=== PATIENT | male | born 1950 | race Two or more races ===

== ENCOUNTER 2017-10-19 19:11 | Inpatient (IN) | payer MEDICARE, MEDICAID ==
[~2017-10-19] VITALS: Ht 188 cm; Wt 91.7 kg
[2017-10-19] VITALS (11 sets, daily range): BP systolic 122–181; BP diastolic 69–106
[2017-10-19] MEDS ORDERED: Azithromycin 500 MG in D5W 275 ML IVPB ONE (19:15)
[2017-10-19] MEDS ORDERED: Solu-MEDROL 125mg Inj IVP ONE (19:15)
--- NOTE | 2017-10-19 19:26 | Emergency Room Report ---
History of Present Illness General Chief Complaint: Dyspnea/Respdistress Source: Patient, EMS Present Illness HPI 67-year-old male with history of COPD, former smoker, hypertension p/w SOB for 3 days. SOB occurs both at rest and on exertion. + productive cough with sputum, denies change in sputum production. Denies chest pain. Patient has been using albuterol nebulizer about 3 times a day No recent steroid use. Pt states that this episode is similar to other episodes of COPD exacerbation. Denies fever, chills. Denies sick contacts or recent travel. Patient denies history of ICU admissions, intubations, or usage of BIPAP for COPD. Allergies: Coded Allergies: PENICILLINS (Verified Allergy, Unknown, 10/19/17) Patient History Past Medical History: see triage record Past Surgical History: none Pertinent Family History: none Reviewed Nursing Documentation: PMH: Agreed, PSxH: Agreed Nursing Documentation-PMH Hx Hypertension: Yes Hx Asthma: Yes Hx Cerebrovascular Accident: Yes Review of Systems All Other Systems: negative except mentioned in HPI Physical Exam Vital Signs Date Time Temp Pulse Resp B/P (MAP) Pulse Ox O2 Delivery O2 Flow Rate FiO2 10/19/17 19:14 98.8 121 27 146/78 100 Bi-pap 15.0 Sp02 EP Interpretation: reviewed, normal General Appearance: alert, GCS 15, moderate distress, other - Appear short of breath, speaking in 2-3 word sentences Head: normocephalic, atraumatic Eyes: bilateral eye normal inspection, bilateral eye PERRL, bilateral eye EOMI ENT: normal ENT inspection, normal pharynx, moist mucus membranes Neck: normal inspection, full range of motion, supple Respiratory: other - Bilateral expiratory wheezing, tachypnea, retracting Cardiovascular #1: normal inspection, regular rate, rhythm, normal capillary refill Cardiovascular #2: 2+ radial (R), 2+ radial (L) Gastrointestinal: normal inspection, non tender, soft, non-distended, no guarding Musculoskeletal: normal inspection, back normal, normal range of motion, non- tender Neurologic: normal inspection, alert, oriented x3, responsive, motor strength/ tone normal, sensory intact, normal gait, speech normal Psychiatric: normal inspection, judgement/insight normal, memory normal Skin: normal inspection, normal color, no rash, warm/dry, well hydrated, normal turgor Procedures Critical Care Time Critical Care Time 40 minutes of CC time 57-year-old male, COPD, shortness of breath VS: tachycardiac, tachypneic PLAN: IV access, labs, BiPAP, nebs, steroids, antibiotics Anticipate admission to Tele vs. R[facility] CC time also includes review of labs, review of EMR, discussion with family and paperwork from SNF, d/w hospitalist CC could include dosing of pressors, additional Abx CC time does not include procedures Intubation Intubation : Consent: Verbal Intubation Method: orotracheal Tube Size (cm): 7.5 Medications: Ketamine, Rocuronium Breath Sounds after Intubation: equal Intubation Complications: no complications Post Intubation Xray: Yes Attempts: One Patient Tolerated: Well Complications: None Medical Decision Making Diagnostic Impression: Primary Impression: COPD exacerbation Additional Impression: Respiratory failure with hypercapnia ER Course 67-year-old male with pmhx of COPD p/w SOB for 3 days. DDX: COPD exacerbation, ACS, pneumonia Plan: IV access, cardiac care unit nurse, O2 nasal cannula, EKG, CXR obtain basic labs including blood gas, troponin, Duonebs, steroids, consider mag Will consider BIPAP for persistent or worsening respiratory status ER Course: Patient immediately placed on BiPAP upon arrival Patient has been treated with combivent x 3, steroids, antibiotics. + IV mag sulfate CXR reveals no acute infiltrate pt very anxious, continues to be wheezing, wanting to take off bipap despite being in severe resp distress ketamine 25mg IV given via slow push for anxiolysis and bronchodilation, not procedural sedation patient continues to be awake and alert, still in resp distress however is tolerating bipap well pCO2 noted to inc to 71 worsening resp status, not able to tolerate bipap intuabted him at 10:10pm, notified Dr Collins. Disposition: Patient will be admitted to ICU Patient remains critical with vital signs revealing tachypnea and hypoxia. Patient requires close monitoring of respiratory status, continuation of BIPAP, and nebulizer treatment. D/W hospitalist Dr Collins who has accepted patient for admission Please note that this Emergency Department Report was dictated using [employer] patrolman technology software, occasionally this can lead to erroneous entry secondary to interpretation by the dictation equipment. EKG Diagnostic Results EP Interpretation: Yes Rate: Tachycardic Rhythm: NSR ST Segments: No acute changes ASA given to patient: no Rhythm Strip EP Interpretation: Yes Rate: 100 Rhythm: NSR, no PVCs, no ectopy Chest X-ray CXR: Ordered: Yes 1 view Indication: SOB EP interpretation: Yes Interpretation: hyperinflated lungs Impression: copd Electronically signed by Kristopher Hope MD Chest X-ray CXR: Ordered: Yes 1 view Indication: ETT placement EP interpretation: Yes Interpretation: ETT in appropriate position Impression: ETT in appropriate position Electronically signed by Kristopher Hope MD Laboratory Tests Test 10/19/17 19:14 10/19/17 19:28 10/19/17 21:13 10/19/17 21:14 Arterial Blood pH 7.242 (7.350-7.450) 7.187 (7.350-7.450) Arterial Blood Partial Pressure CO2 69.3 mmHg (35.0-45.0) *H 72.0 mmHg (35.0-45.0) *H Arterial Blood Partial Pressure O2 319.2 mmHg (75.0-100.0) H 209.5 mmHg (75.0-100.0) H Arterial Blood HCO3 29.2 mmol/L (22.0-26.0) H 26.7 mmol/L (22.0-26.0) H Arterial Blood Oxygen Saturation 98.9 % (92.0-98.0) H 98.8 % (92.0-98.0) H Arterial Blood Base Excess 0 -3.3 Wang Test Positive Positive White Blood Count 7.6 K/UL (4.8-10.8) Red Blood Count 4.90 M/UL (4.70-6.10) Hemoglobin 15.2 G/DL (14.2-18.0) Hematocrit 45.5 % (42.0-52.0) Mean Corpuscular Volume 93 FL (80-99) Mean Corpuscular Hemoglobin 31.1 PG (27.0-31.0) H Mean Corpuscular Hemoglobin Concent 33.5 G/DL (32.0-36.0) Red Cell Distribution Width 11.2 % (11.6-14.8) L Platelet Count 202 K/UL (150-450) Mean Platelet Volume 7.0 FL (6.5-10.1) Neutrophils (%) (Auto) 86.7 % (45.0-75.0) H Lymphocytes (%) (Auto) 6.2 % (20.0-45.0) L Monocytes (%) (Auto) 6.2 % (1.0-10.0) Eosinophils (%) (Auto) 0.0 % (0.0-3.0) Basophils (%) (Auto) 0.9 % (0.0-2.0) Prothrombin Time 10.5 SEC (9.30-11.50) Prothrombin Time INR 1.0 (0.9-1.1) PTT 37 SEC (23-33) H Sodium Level 133 MMOL/L (136-145) L Potassium Level 3.8 MMOL/L (3.5-5.1) Chloride Level 96 MMOL/L (98-107) L Carbon Dioxide Level 29 MMOL/L (21-32) Anion Gap 8 mmol/L (5-15) Blood Urea Nitrogen 13 mg/dL (7-18) Creatinine 1.1 MG/DL (0.55-1.30) Estimate Glomerular Filtration Rate > 60 mL/min (>60) Glucose Level 286 MG/DL (74-106) H Calcium Level 8.9 MG/DL (8.5-10.1) Total Bilirubin 0.6 MG/DL (0.2-1.0) Aspartate Amino Transferase (AST) 23 U/L (15-37) Alanine Aminotransferase (ALT) 28 U/L (12-78) Alkaline Phosphatase 112 U/L (46-116) Troponin I 0.000 ng/mL (0.000-0.056) Pro-B-Type Natriuretic Peptide 208 pg/mL (0-125) H Total Protein 8.1 G/DL (6.4-8.2) Albumin 3.9 G/DL (3.4-5.0) Globulin 4.2 g/dL Albumin/Globulin Ratio 0.9 (1.0-2.7) L Urine Color Yellow Urine Appearance Clear Urine pH 5 (4.5-8.0) Urine Specific [place] 1.025 (1.005-1.035) Urine Protein 3+ (NEGATIVE) H Urine Glucose (UA) 4+ (NEGATIVE) H Urine Ketones 1+ (NEGATIVE) H Urine Occult Blood 3+ (NEGATIVE) H Urine Nitrite Negative (NEGATIVE) Urine Bilirubin Negative (NEGATIVE) Urine Urobilinogen Normal MG/DL (0.0-1.0) Urine Leukocyte Esterase Negative (NEGATIVE) Urine RBC 0-2 /HPF (0 - 0) H Urine WBC 2-4 /HPF (0 - 0) Urine Squamous Epithelial Cells Occasional /LPF Urine Bacteria Occasional /HPF (NONE) Last Vital Signs Date Time Temp Pulse Resp B/P (MAP) Pulse Ox O2 Delivery O2 Flow Rate FiO2 10/19/17 19:14 98.8 121 27 146/78 100 Bi-pap 15.0 Disposition: ADMITTED INPATIENT Condition: Critical Kristopher Hope M.D. Oct 19, 2017 19:26
[2017-10-19] MEDS: Albuterol ud Inhalation HHN SCH ×6 (19:36→21:16)
[2017-10-19] MEDS: Ipratropium 0.02% Inh Soln 2.5ml UD HHN SCH ×6 (19:36→21:16)
[2017-10-19] MEDS ORDERED: Azithromycin 500mg Inj IV ONE (19:47)
[2017-10-19 19:50] LABS: MEAN CORPUSCULAR HEMOGLOBIN 31.1 PG (27.0-31.0); MEAN CORPUSCULAR HGB CONC 33.5 G/DL (32.0-36.0); MEAN CORPUSCULAR VOLUME 93 FL (80-99); PLATELET COUNT 202 K/UL (150-450); RED CELL DISTRIBUTION WIDTH 11.2 % (11.6-14.8); WHITE BLOOD COUNT 7.6 K/UL (4.8-10.8)
[2017-10-19 19:56] LABS: BASOPHILS % (AUTO) 0.9 % (0.0-2.0); LYMPHOCYTES % (AUTO) 6.2 % (20.0-45.0); MONOCYTES % (AUTO) 6.2 % (1.0-10.0); NEUTROPHILS % (AUTO) 86.7 % (45.0-75.0)
[2017-10-19 20:05] LABS: PROTHROMBIN TIME 10.5 SEC (9.30-11.50)
[2017-10-19 20:09] LABS: ANION GAP 8 mmol/L (5-15); CALCIUM 8.9 MG/DL (8.5-10.1); CARBON DIOXIDE 29 MMOL/L (21-32); CHLORIDE 96 MMOL/L (98-107); CREATININE 1.1 MG/DL (0.55-1.30); GLOMERULAR FILTRATION RATE > 60 mL/min (>60); POTASSIUM 3.8 MMOL/L (3.5-5.1); SODIUM 133 MMOL/L (136-145)
[2017-10-19 20:10] LABS: ABG BASE EXCESS 0; ABG PCO2 69.3 mmHg (35.0-45.0)
[2017-10-19 20:11] LABS: ABG ALLEN TEST POSITIVE
[2017-10-19] MEDS ORDERED: Ketamine HCl 100mg syr IV ONE ×3 (20:15→22:15)
[2017-10-19 20:20] LABS: ALANINE AMINOTRANSFERASE 28 U/L (12-78); ALBUMIN/GLOBULIN RATIO 0.9 (1.0-2.7); ASPARTATE AMINO TRANSFERASE 23 U/L (15-37); TOTAL PROTEIN 8.1 G/DL (6.4-8.2)
[2017-10-19 21:32] LABS: APPEARANCE,URINE CLEAR; KETONES,URINE 1+ (NEGATIVE); LEUKOCYTE ESTERASE ,URINE NEGATIVE (NEGATIVE); NITRITE,URINE NEGATIVE (NEGATIVE); PH,URINE 5 (4.5-8.0); PROTEIN,URINE 3+ (NEGATIVE); UROBILINOGEN,URINE NORMAL MG/DL (0.0-1.0)
[2017-10-19 21:39] LABS: BACTERIA,URINE OCCASIONAL /HPF; RBC,URINE 0-2 /HPF (0 - 0); SQUAMOUS EPITHELIAL CELL,UR OCCASIONAL /LPF (NONE/OCC)
[2017-10-19 21:42] LABS: ABG ALLEN TEST POSITIVE; ABG BASE EXCESS -3.3
[2017-10-19] MEDS ORDERED: Zemuron 50mg/5ml Inj IV ONE (22:15)
[2017-10-19] MEDS ORDERED: UNOBMED (22:47)
[2017-10-19] MEDS ORDERED: Hydromorphone 0.5mg/0.5ml inj IVP PRN (23:00)
[2017-10-19] MEDS ORDERED: LORazepam Inj 2mg/ml 1ml IV PRN (23:00)
[2017-10-20] VITALS (37 sets, daily range): BP systolic 109–186; BP diastolic 65–97
[2017-10-20] MEDS: D5 1/2NS 1,000 ML IV SCH ×2 (00:59→19:20)
[2017-10-20] MEDS ORDERED: Albuterol ud Inhalation ONE (01:05)
[2017-10-20] MEDS ORDERED: Albuterol/Ipratropium 3ml neb ONE ×2 (01:07→03:29)
[2017-10-20] MEDS: Albuterol/Ipratropium 3ml neb HHN SCH ×7 (01:08→23:16)
[2017-10-20 05:03] LABS: ABG BASE EXCESS 0.8; ABG PCO2 69.1 mmHg (35.0-45.0)
[2017-10-20 05:04] LABS: ABG ALLEN TEST POSITIVE
[2017-10-20 05:16] LABS: MEAN CORPUSCULAR HEMOGLOBIN 32.2 PG (27.0-31.0); MEAN CORPUSCULAR HGB CONC 34.3 G/DL (32.0-36.0); MEAN CORPUSCULAR VOLUME 94 FL (80-99); PLATELET COUNT 199 K/UL (150-450); RED BLOOD COUNT 4.19 M/UL (4.70-6.10); RED CELL DISTRIBUTION WIDTH 11.5 % (11.6-14.8)
[2017-10-20 05:37] LABS: ANION GAP 7 mmol/L (5-15); CALCIUM 8.8 MG/DL (8.5-10.1); CARBON DIOXIDE 31 MMOL/L (21-32); CHLORIDE 95 MMOL/L (98-107); CREATININE 1.3 MG/DL (0.55-1.30); GLOMERULAR FILTRATION RATE 55.4 mL/min (>60); POTASSIUM 4.4 MMOL/L (3.5-5.1); SODIUM 133 MMOL/L (136-145)
[2017-10-20 07:55] LABS: BAND NEUTROPHILS % (MANUAL) 0 % (0-8); BASOPHILS % (MANUAL) 0 % (0-2); EOSINOPHILS % (MANUAL) 0 % (0-3); LYMPHOCYTES % (MANUAL) 12 % (20-45); NEUTROPHILS % (MANUAL) 85 % (45-75); PLATELET ESTIMATE ADEQUATE; PLATELET MORPHOLOGY NORMAL; TOTAL CELLS COUNTED 100
[2017-10-20] MEDS: Solu-MEDROL 125mg Inj IVP SCH ×2 (09:28→20:41)
[2017-10-20] MEDS ORDERED: Propofol 200mg/20ml IV ONE (09:45)
[2017-10-20] MEDS ORDERED: Pantoprazole Inj ONE (09:57)
[2017-10-20] MEDS: Pantoprazole Inj IV SCH (09:59)
--- NOTE | 2017-10-20 10:20 | History & Physical ---
History and Physical History & Physicial HP dictated # [id number] JAVIER OBRIEN Oct 20, 2017 10:20
--- NOTE | 2017-10-20 10:57 | Diagnostic Imaging Report ---
Indication: Dyspnea Comparison: None A single view chest radiograph was obtained. Findings: Cardiomediastinal appearance is within normal limits for age. Pulmonary vascularity is appropriate. The diaphragmatic contour is smooth and costophrenic angles are sharp. No pleural effusions are identified. The bones are unremarkable. Impression: No acute findings
--- NOTE | 2017-10-20 11:11 | Diagnostic Imaging Report ---
Indication: Intubation Comparison: 10/19/2017 earlier time A single view chest radiograph was obtained. Findings: Endotracheal tube is in good position several centimeters above the naida. No change otherwise compared to about 2 hours earlier. Impression: Endotracheal tube in good position
--- NOTE | 2017-10-20 17:00 | History and Physical Report ---
DATE OF ADMISSION: 10/19/2017 CHIEF COMPLAINT: The patient was brought into the emergency room with shortness of breath. HISTORY OF PRESENT ILLNESS: This is a 67-year-old male with some COPD, former smoker, who apparently was short of breath for three days. The patient had difficulty breathing both at rest and with exertion and also productive cough with sputum. The patient came to the emergency room and was found to be hypercapnic and in respiratory distress. So, he had to be intubated and he is unable to provide any history. History was obtained from the chart. PAST MEDICAL HISTORY: Unobtainable except for what was mentioned. The patient has also a history of hypertension and a prior history of CVA. ALLERGIES: Penicillin. SOCIAL HISTORY: Unobtainable. REVIEW OF SYSTEMS: Unobtainable. PHYSICAL EXAMINATION: GENERAL: The patient is a 67-year-old male, in no acute distress. VITAL SIGNS: Blood pressure is 151/95, pulse is 94, temperature 98.9 degrees, respiratory rate is 22. HEENT: [place] conjunctivae. Anicteric sclerae. NECK: Supple. LUNGS: Clear to auscultation. HEART: S1 and S2 without murmurs or rubs. ABDOMEN: Soft and nontender. EXTREMITIES: No cyanosis or edema. LABORATORY FINDINGS: The CBC shows a WBC of 7000, hematocrit 39.4, hemoglobin is 13.5, and platelets 199,000. The chemistry panel shows serum sodium 133, potassium 4.4, chloride 95, BUN is 16, creatinine 1.3, glucose 355, and calcium is 8.8. ASSESSMENT: This is a 67-year-old male, who was admitted with respiratory failure with hypercapnia and hypoxemia. The patient is intubated and sedated now. He has a history of hypertension. Also his blood sugar is elevated, but no reported history of diabetes. PLAN: The patient will be on the ventilator. He was started on bronchodilators and IV steroids. Pulmonary consultation will be obtained. The patient was started on IV antibiotics for possible acute bronchitis. Also, I will start the patient on sliding scale insulin. Hemoglobin A1c will be checked. The following MIPS (Merit-based Incentive Payment System) measures were done. Measure #130, obtained, updated, and reviewed the patient's current medications (including prescription, [id number], herbal, and nutritional supplements). Measure #318, screen for future fall risk at least once in 2017. The patient's fall history is low at baseline. Measure #374%, send report to the referring provider. This will be done through EMR. THE FOLLOWING IMPROVEMENT ACTIVITIES WERE DONE: 1. Implementation of use of specialist reports back to referring clinician or group to close referral loop down through EMR. 2. Provide 11/06 access to eligible conditions or groups who have realtime access to the patient's medical record done through EMR. Baltazar Collins M.D. DR: Evita JOB#: [id number] CC:
--- NOTE | 2017-10-20 18:20 | Cardiology Report ---
APPROVED REPORT EKG Measurement Heart [id number] Sinus tachycardia Septal infarct, age undetermined Abnormal ECG
[2017-10-20] MEDS: LORazepam Inj 2mg/ml 1ml IV PRN (19:54)
[2017-10-21] VITALS (36 sets, daily range): BP systolic 113–162; BP diastolic 63–105
[2017-10-21] MEDS: LORazepam Inj 2mg/ml 1ml IV PRN ×6 (00:50→21:47)
[2017-10-21] MEDS: Albuterol/Ipratropium 3ml neb HHN SCH ×6 (02:19→23:02)
[2017-10-21] MEDS: D5 1/2NS 1,000 ML IV SCH ×2 (02:34→16:19)
[2017-10-21 05:17] LABS: MEAN CORPUSCULAR HEMOGLOBIN 32.4 PG (27.0-31.0); MEAN CORPUSCULAR VOLUME 95 FL (80-99); MEAN PLATELET VOLUME 6.8 FL (6.5-10.1); PLATELET COUNT 201 K/UL (150-450); RED BLOOD COUNT 3.92 M/UL (4.70-6.10); RED CELL DISTRIBUTION WIDTH 11.7 % (11.6-14.8); WHITE BLOOD COUNT 13.3 K/UL (4.8-10.8)
[2017-10-21 05:41] LABS: ALANINE AMINOTRANSFERASE 25 U/L (12-78); ANION GAP 4 mmol/L (5-15); ASPARTATE AMINO TRANSFERASE 27 U/L (15-37); BILIRUBIN,DIRECT < 0.1 MG/DL (0.0-0.3); CALCIUM 8.9 MG/DL (8.5-10.1); CARBON DIOXIDE 32 MMOL/L (21-32); CHLORIDE 101 MMOL/L (98-107); CREATININE 1.2 MG/DL (0.55-1.30); GLOMERULAR FILTRATION RATE > 60 mL/min (>60); MAGNESIUM 2.6 MG/DL (1.8-2.4); PHOSPHORUS 3.8 MG/DL (2.5-4.9); POTASSIUM 4.4 MMOL/L (3.5-5.1); SODIUM 137 MMOL/L (136-145); TOTAL PROTEIN 7.2 G/DL (6.4-8.2)
[2017-10-21 05:43] LABS: INR 0.9 (0.9-1.1); PROTHROMBIN TIME 9.8 SEC (9.30-11.50)
[2017-10-21 06:59] LABS: ABG PCO2 63.5 mmHg (35.0-45.0)
[2017-10-21 07:00] LABS: ABG ALLEN TEST POSITIVE; ABG BASE EXCESS 3.4
[2017-10-21 07:44] LABS: BAND NEUTROPHILS % (MANUAL) 0 % (0-8); BASOPHILS % (MANUAL) 0 % (0-2); EOSINOPHILS % (MANUAL) 0 % (0-3); LYMPHOCYTES % (MANUAL) 5 % (20-45); NEUTROPHILS % (MANUAL) 89 % (45-75); PLATELET ESTIMATE ADEQUATE; PLATELET MORPHOLOGY NORMAL; TOTAL CELLS COUNTED 100
[2017-10-21] MEDS: Solu-MEDROL 125mg Inj IVP SCH ×2 (09:19→21:49)
[2017-10-21] MEDS: Pantoprazole Inj IV SCH (09:19)
--- NOTE | 2017-10-21 13:44 | General Progress Note ---
Assessment/Plan Problem List: (1) Respiratory failure with hypercapnia ICD Codes: J96.92 - Respiratory failure, unspecified with hypercapnia SNOMED: 849749942 (2) COPD exacerbation ICD Codes: J44.1 - Chronic obstructive pulmonary disease with (acute) exacerbation SNOMED: 315030990007085 Assessment/Plan Bronchodilators IV Steroids Abxs Discussed with RN and pulm wean as tolerated IVF Subjective Allergies: Coded Allergies: PENICILLINS (Verified Allergy, Unknown, 10/19/17) Subjective All noted In NAD Objective Last 24 Hour Vital Signs Date Time Temp Pulse Resp B/P (MAP) Pulse Ox O2 Delivery O2 Flow Rate FiO2 10/21/17 12:38 97 20 40 10/21/17 12:00 40 10/21/17 12:00 20 10/21/17 12:00 94 20 152/86 98 Mechanical Ventilator 40 10/21/17 12:00 94 10/21/17 11:30 92 20 152/86 98 Mechanical Ventilator 40 10/21/17 11:11 90 20 99 Mechanical Ventilator 40 10/21/17 11:02 91 20 99 Mechanical Ventilator 40 10/21/17 11:02 91 20 40 10/21/17 11:00 90 20 132/80 100 Mechanical Ventilator 40 10/21/17 11:00 20 10/21/17 10:30 91 20 119/73 98 Mechanical Ventilator 40 10/21/17 10:00 97 20 116/74 98 Mechanical Ventilator 40 10/21/17 10:00 10/21/17 10:00 20 10/21/17 09:30 95 20 117/71 98 Mechanical Ventilator 40 10/21/17 09:00 98 20 40 10/21/17 09:00 20 10/21/17 09:00 97 20 116/74 98 Mechanical Ventilator 40 10/21/17 08:30 100 20 120/71 98 Mechanical Ventilator 40 10/21/17 08:00 40 10/21/17 08:00 98.4 101 21 144/91 98 Mechanical Ventilator 40 10/21/17 08:00 21 10/21/17 08:00 101 10/21/17 07:30 100 22 132/78 99 Mechanical Ventilator 40 10/21/17 07:27 25 10/21/17 07:00 20 10/21/17 07:00 91 20 120/78 100 Mechanical Ventilator 40 10/21/17 06:47 91 20 99 Mechanical Ventilator 40 10/21/17 06:47 90 20 99 Mechanical Ventilator 40 10/21/17 06:40 91 20 40 10/21/17 06:30 90 20 119/71 98 Mechanical Ventilator 40 10/21/17 06:00 20 10/21/17 06:00 91 20 122/71 99 Mechanical Ventilator 40 10/21/17 05:30 91 22 113/75 99 Mechanical Ventilator 40 10/21/17 05:14 98 20 40 10/21/17 05:00 92 20 123/78 98 Mechanical Ventilator 40 10/21/17 05:00 21 10/21/17 04:30 94 24 123/77 96 Mechanical Ventilator 30 10/21/17 04:00 40 10/21/17 04:00 98.5 94 24 122/74 96 Mechanical Ventilator 30 10/21/17 04:00 23 10/21/17 03:30 93 24 143/76 96 Mechanical Ventilator 30 10/21/17 03:29 93 10/21/17 03:00 93 24 150/81 96 Mechanical Ventilator 30 10/21/17 03:00 20 10/21/17 02:35 20 10/21/17 02:31 96 20 40 10/21/17 02:30 95 24 115/63 96 Mechanical Ventilator 30 10/21/17 02:29 97 20 97 Mechanical Ventilator 40 10/21/17 02:18 92 20 98 Mechanical Ventilator 30 10/21/17 02:00 20 10/21/17 02:00 94 24 127/70 96 Mechanical Ventilator 30 10/21/17 01:45 40 10/21/17 01:30 95 24 133/73 96 Mechanical Ventilator 30 10/21/17 01:16 96 20 30 10/21/17 01:00 94 24 141/72 92 Mechanical Ventilator 30 10/21/17 01:00 24 10/21/17 00:30 93 22 144/77 92 Mechanical Ventilator 30 10/21/17 00:08 94 10/21/17 00:00 30 10/21/17 00:00 98.1 93 22 139/77 95 Mechanical Ventilator 30 10/21/17 00:00 22 10/20/17 23:30 90 20 145/78 100 Mechanical Ventilator 30 10/20/17 23:29 90 20 100 Mechanical Ventilator 30 10/20/17 23:15 92 20 98 Mechanical Ventilator 30 10/20/17 23:13 92 20 30 10/20/17 23:00 91 24 140/76 96 Mechanical Ventilator 30 10/20/17 23:00 26 10/20/17 22:30 92 22 144/77 96 Mechanical Ventilator 30 10/20/17 22:00 92 26 159/90 98 Mechanical Ventilator 30 10/20/17 22:00 25 10/20/17 21:30 93 23 161/93 94 Mechanical Ventilator 30 10/20/17 21:13 94 21 30 10/20/17 21:00 97 25 142/77 94 Mechanical Ventilator 30 10/20/17 21:00 26 10/20/17 20:30 100 25 145/84 95 Mechanical Ventilator 30 10/20/17 20:10 33 10/20/17 20:04 102 10/20/17 20:00 98.3 102 33 162/93 98 Mechanical Ventilator 30 10/20/17 20:00 30 10/20/17 19:55 25 10/20/17 19:45 98 30 166/94 95 Mechanical Ventilator 30 10/20/17 19:40 30 10/20/17 19:40 97 20 162/93 100 Mechanical Ventilator 30 10/20/17 19:06 99 22 30 10/20/17 19:05 99 22 99 Mechanical Ventilator 30 10/20/17 19:00 101 20 140/83 100 Mechanical Ventilator 30 10/20/17 19:00 20 10/20/17 18:52 94 30 93 Mechanical Ventilator 30 10/20/17 18:52 29 10/20/17 18:30 94 29 140/83 96 Mechanical Ventilator 30 10/20/17 18:00 88 25 186/97 91 Mechanical Ventilator 30 10/20/17 17:30 91 27 122/73 96 Mechanical Ventilator 30 10/20/17 17:00 90 20 99 Mechanical Ventilator 30 10/20/17 17:00 85 10/20/17 17:00 30 10/20/17 17:00 90 21 122/73 96 Mechanical Ventilator 30 10/20/17 16:48 90 21 95 Mechanical Ventilator 30 10/20/17 16:36 89 21 30 10/20/17 16:30 98.5 91 23 154/84 97 Mechanical Ventilator 30 10/20/17 16:30 98.5 92 23 154/84 97 Mechanical Ventilator 15.0 30 91 10/20/17 15:45 99.1 92 21 122/74 93 Mechanical Ventilator 15.0 30 10/20/17 14:32 Mechanical Ventilator 30 10/20/17 14:32 Mechanical Ventilator 10/20/17 14:30 93 21 30 10/20/17 13:45 99.1 92 22 137/79 93 Mechanical Ventilator 15.0 30 Intake and Output 10/21/17 10/22/17 19:00 07:00 Intake Total 458.685 ml Output Total 235 ml Balance 223.685 ml IV Total 458.685 ml Output Urine Total 235 ml Laboratory Tests 10/21/17 04:30: White Blood Count 13.3#H, Red Blood Count 3.92L, Hemoglobin 12.7L, Hematocrit 37.4L, Mean Corpuscular Volume 95, Mean Corpuscular Hemoglobin 32.4H, Mean Corpuscular Hemoglobin Concent 34.0, Red Cell Distribution Width 11.7, Platelet Count 201, Mean Platelet Volume 6.8, Neutrophils (%) (Auto) , Lymphocytes (%) ( Auto) , Monocytes (%) (Auto) , Eosinophils (%) (Auto) , Basophils (%) (Auto) , Differential Total Cells Counted 100, Neutrophils % (Manual) 89H, Lymphocytes % (Manual) 5L, Monocytes % (Manual) 6, Eosinophils % (Manual) 0, Basophils % ( Manual) 0, Band Neutrophils 0, Platelet Estimate Adequate, Platelet Morphology Normal, Red Blood Cell Morphology Normal, Prothrombin Time 9.8, Prothromb Time International Ratio 0.9, Activated Partial Thromboplast Time 33, Sodium Level 137, Potassium Level 4.4, Chloride Level 101, Carbon Dioxide Level 32, Anion Gap 4L, Blood Urea Nitrogen 19H, Creatinine 1.2, Estimat Glomerular Filtration Rate > 60, Glucose Level 292H, Calcium Level 8.9, Phosphorus Level 3.8, Magnesium Level 2.6H, Total Bilirubin 0.2, Direct Bilirubin < 0.1, Aspartate Amino Transf (AST/SGOT) 27, Alanine Aminotransferase (ALT/SGPT) 25, Alkaline Phosphatase 84, Total Protein 7.2, Albumin 3.2L, Triglycerides Level 103 10/21/17 06:40: Arterial Blood pH 7.311L, Arterial Blood Partial Pressure CO2 63.5*H, Arterial Blood Partial Pressure O2 93.6, Arterial Blood HCO3 31.3H, Arterial Blood Oxygen Saturation 96.5, Arterial Blood Base Excess 3.4, Wang Test Positive Height (Feet): 6 Height (Inches): 2.00 Weight (Pounds): 206 Cardiovascular: normal rate Respiratory/Chest: rhonchi - bilaterally Edema: no edema noted Generalized JAVIER OBRIEN Oct 21, 2017 13:44
[2017-10-21] MEDS: cefTRIAXone 1 GM in D5W 55 ML IVPB SCH (16:19)
--- NOTE | 2017-10-21 18:45 | Consultation ---
DATE OF CONSULTATION: 10/21/2017 PULMONARY CONSULTATION CONSULTING PHYSICIAN: Jude Landeros M.D. CHIEF COMPLAINT: Respiratory failure. HISTORY OF PRESENT ILLNESS: This 67-year-old man was brought in from home with shortness of breath. He is known to have COPD and was a past heavy smoker. He was noted to have respiratory acidosis and was intubated and I was called to see him in consultation. PAST MEDICAL HISTORY: COPD, hypertension, and stroke. MEDICATIONS: Reviewed. ALLERGIES: Penicillin. REVIEW OF SYSTEMS: Cannot be obtained. PHYSICAL EXAMINATION: GENERAL: The patient is alert and sedated. He has been agitated at times according to the nurse. The blood pressure is somewhat elevated, but has been markedly elevated when he is agitated. He is on ventilator support with an orotracheal tube in place. He appears well developed and well nourished. HEENT: Head is normocephalic. NECK: No jugular venous distention. CHEST: Decreased air entry. CARDIAC: Rhythm is regular. ABDOMEN: Soft and nontender. Liver and spleen not enlarged. EXTREMITIES: No clubbing, cyanosis, or edema. LABORATORY AND DIAGNOSTIC DATA: Chest x-ray is clear with no pneumonia or infiltrates. The endotracheal tube is in good position. Laboratory studies are noted. IMPRESSION: 1. Hypercapnic respiratory failure, now intubated. 2. Chronic obstructive pulmonary disease. 3. Hypertension. 4. Agitation. 5. History of stroke. PLAN: The patient will continue on bronchodilator, steroids, and ventilator support. His spontaneous tidal volumes have improved at this point and are over 300 mL. We will try starting weaning protocol and reduce his sedation. Jude Landeros M.D. DR: Lennox JOB#: [id number] CC: Baltazar Collins M.D.; Fax#: [phone]
[2017-10-21] MEDS: Hydromorphone 0.5mg/0.5ml inj IVP PRN (20:00)
[2017-10-22] VITALS (25 sets, daily range): BP systolic 125–230; BP diastolic 67–107
[2017-10-22] MEDS: Hydromorphone 0.5mg/0.5ml inj IVP PRN ×5 (00:03→22:14)
[2017-10-22] MEDS: LORazepam Inj 2mg/ml 1ml IV PRN ×7 (02:18→22:34)
[2017-10-22] MEDS: Albuterol/Ipratropium 3ml neb HHN SCH ×6 (03:13→23:40)
[2017-10-22] MEDS: D5 1/2NS 1,000 ML IV SCH ×2 (05:12→18:32)
[2017-10-22] MEDS: Pantoprazole Inj IV SCH (08:21)
[2017-10-22] MEDS: Solu-MEDROL 125mg Inj IVP SCH ×2 (08:22→20:32)
--- NOTE | 2017-10-22 09:06 | General Progress Note ---
Assessment/Plan Problem List: (1) Respiratory failure with hypercapnia ICD Codes: J96.92 - Respiratory failure, unspecified with hypercapnia SNOMED: 544657268 (2) COPD exacerbation ICD Codes: J44.1 - Chronic obstructive pulmonary disease with (acute) exacerbation SNOMED: 743047240676234 Assessment/Plan Bronchodilators IV Steroids Abxs Discussed with RN and Dr lester wean as tolerated IVF Subjective Allergies: Coded Allergies: PENICILLINS (Verified Allergy, Unknown, 10/19/17) Subjective awake remains intubated Objective Last 24 Hour Vital Signs Date Time Temp Pulse Resp B/P (MAP) Pulse Ox O2 Delivery O2 Flow Rate FiO2 10/22/17 07:01 87 23 97 Mechanical Ventilator 40 10/22/17 07:00 90 19 137/79 98 Mechanical Ventilator 40 10/22/17 06:52 85 23 40 10/22/17 06:51 85 23 97 Mechanical Ventilator 10/22/17 06:00 83 20 144/81 97 Mechanical Ventilator 40 10/22/17 05:15 87 20 40 10/22/17 05:00 83 20 125/77 97 Mechanical Ventilator 40 10/22/17 04:00 40 10/22/17 04:00 98.6 95 26 159/96 97 Mechanical Ventilator 40 10/22/17 03:13 89 10/22/17 03:10 88 20 100 Mechanical Ventilator 40 10/22/17 03:00 86 20 100 Mechanical Ventilator 40 10/22/17 03:00 83 23 134/84 98 Mechanical Ventilator 40 10/22/17 03:00 88 20 40 10/22/17 02:00 83 32 141/84 97 Mechanical Ventilator 40 10/22/17 01:20 91 20 40 10/22/17 01:00 84 20 133/82 97 Mechanical Ventilator 40 10/22/17 00:35 85 20 145/83 100 Mechanical Ventilator 40 10/22/17 00:05 96 10/22/17 00:00 97.5 96 20 161/92 100 Mechanical Ventilator 40 10/22/17 00:00 40 10/21/17 23:05 87 20 100 Mechanical Ventilator 40 10/21/17 23:03 87 20 40 10/21/17 23:00 85 20 98 Mechanical Ventilator 40 10/21/17 23:00 87 20 142/79 100 Mechanical Ventilator 40 10/21/17 22:00 86 20 158/95 100 Mechanical Ventilator 40 10/21/17 21:00 87 20 128/72 98 Mechanical Ventilator 40 10/21/17 21:00 86 20 40 10/21/17 20:00 98.5 93 20 148/84 100 Mechanical Ventilator 40 10/21/17 20:00 40 10/21/17 19:20 91 20 100 Mechanical Ventilator 40 10/21/17 19:11 91 20 99 Mechanical Ventilator 40 10/21/17 19:10 94 20 40 10/21/17 19:01 97 10/21/17 19:00 93 23 152/105 99 Mechanical Ventilator 40 10/21/17 18:00 94 21 151/95 100 Mechanical Ventilator 40 10/21/17 17:00 102 10/21/17 17:00 93 20 152/93 100 Mechanical Ventilator 40 10/21/17 16:48 91 20 40 10/21/17 16:28 40 10/21/17 16:00 98.6 96 21 159/96 99 Mechanical Ventilator 40 10/21/17 15:00 100 25 147/97 98 Mechanical Ventilator 40 10/21/17 14:58 96 20 100 Mechanical Ventilator 40 10/21/17 14:47 95 20 99 Mechanical Ventilator 40 10/21/17 14:40 90 20 40 10/21/17 14:00 96 23 162/96 98 Mechanical Ventilator 40 10/21/17 13:00 96 21 156/86 98 Mechanical Ventilator 40 10/21/17 12:38 97 20 40 10/21/17 12:00 40 10/21/17 12:00 20 10/21/17 12:00 98.4 94 20 152/86 98 Mechanical Ventilator 40 10/21/17 12:00 91 10/21/17 11:30 92 20 152/86 98 Mechanical Ventilator 40 10/21/17 11:11 90 20 99 Mechanical Ventilator 40 10/21/17 11:02 91 20 99 Mechanical Ventilator 40 10/21/17 11:02 91 20 40 10/21/17 11:00 90 20 132/80 100 Mechanical Ventilator 40 10/21/17 11:00 20 10/21/17 10:00 97 20 116/74 98 Mechanical Ventilator 40 10/21/17 10:00 10/21/17 10:00 20 10/21/17 09:30 95 20 117/71 98 Mechanical Ventilator 40 Height (Feet): 6 Height (Inches): 2.00 Weight (Pounds): 204 Cardiovascular: normal rate Respiratory/Chest: rhonchi - bilaterally Edema: no edema noted Generalized JAVIER OBRIEN Oct 22, 2017 09:06
[2017-10-22 10:01] LABS: ABG ALLEN TEST POSITIVE; ABG BASE EXCESS 8.5; ABG PCO2 74.5 mmHg (35.0-45.0)
[2017-10-22] MEDS: cefTRIAXone 1 GM in D5W 55 ML IVPB SCH (16:32)
--- NOTE | 2017-10-22 17:21 | Pulmonology Progress Note ---
Assessment/Plan Assessment/Plan 1. Hypercapnic respiratory failure, now intubated. 2. Chronic obstructive pulmonary disease. 3. Hypertension. 4. Agitation. 5. History of stroke. more awake in IV ativan, off propofol spontaneous TV better >500 cc weaning trails disc w RN, Dr Collins Subjective ROS Limited/Unobtainable: Yes Allergies: Coded Allergies: PENICILLINS (Verified Allergy, Unknown, 10/19/17) Objective Last 24 Hour Vital Signs Date Time Temp Pulse Resp B/P (MAP) Pulse Ox O2 Delivery O2 Flow Rate FiO2 10/22/17 17:13 92 24 30 10/22/17 17:00 93 24 187/89 93 Mechanical Ventilator 40 10/22/17 16:00 99.0 96 24 195/102 93 Mechanical Ventilator 40 10/22/17 16:00 40 10/22/17 15:00 83 13 98 Mechanical Ventilator 30 10/22/17 15:00 92 23 169/67 95 Mechanical Ventilator 40 10/22/17 14:49 88 21 30 10/22/17 14:49 88 94 Mechanical Ventilator 10/22/17 14:00 85 18 193/93 93 Mechanical Ventilator 40 10/22/17 13:08 85 15 30 10/22/17 13:00 85 16 162/85 92 Mechanical Ventilator 40 10/22/17 12:00 102 10/22/17 12:00 40 10/22/17 12:00 98.8 91 20 184/107 96 Mechanical Ventilator 40 10/22/17 11:24 95 27 98 Mechanical Ventilator 30 10/22/17 11:14 93 26 30 10/22/17 11:14 93 26 93 Mechanical Ventilator 10/22/17 11:00 93 21 193/101 95 Mechanical Ventilator 40 10/22/17 10:13 98 25 40 10/22/17 10:00 93 26 230/93 85 Mechanical Ventilator 40 10/22/17 09:35 93 25 30 10/22/17 09:00 92 22 183/103 95 Mechanical Ventilator 40 10/22/17 08:50 94 10/22/17 08:00 98.2 91 18 159/103 98 Mechanical Ventilator 40 10/22/17 08:00 40 10/22/17 08:00 91 10/22/17 07:01 87 23 97 Mechanical Ventilator 40 10/22/17 07:00 90 19 137/79 98 Mechanical Ventilator 40 10/22/17 06:52 85 23 40 10/22/17 06:51 85 23 97 Mechanical Ventilator 10/22/17 06:00 83 20 144/81 97 Mechanical Ventilator 40 10/22/17 05:15 87 20 40 10/22/17 05:00 83 20 125/77 97 Mechanical Ventilator 40 10/22/17 04:00 40 10/22/17 04:00 98.6 95 26 159/96 97 Mechanical Ventilator 40 10/22/17 03:13 89 10/22/17 03:10 88 20 100 Mechanical Ventilator 40 10/22/17 03:00 86 20 100 Mechanical Ventilator 40 10/22/17 03:00 83 23 134/84 98 Mechanical Ventilator 40 10/22/17 03:00 88 20 40 10/22/17 02:00 83 32 141/84 97 Mechanical Ventilator 40 10/22/17 01:20 91 20 40 10/22/17 01:00 84 20 133/82 97 Mechanical Ventilator 40 10/22/17 00:35 85 20 145/83 100 Mechanical Ventilator 40 10/22/17 00:05 96 10/22/17 00:00 97.5 96 20 161/92 100 Mechanical Ventilator 40 10/22/17 00:00 40 10/21/17 23:05 87 20 100 Mechanical Ventilator 40 10/21/17 23:03 87 20 40 10/21/17 23:00 85 20 98 Mechanical Ventilator 40 10/21/17 23:00 87 20 142/79 100 Mechanical Ventilator 40 10/21/17 22:00 86 20 158/95 100 Mechanical Ventilator 40 10/21/17 21:00 87 20 128/72 98 Mechanical Ventilator 40 10/21/17 21:00 86 20 40 10/21/17 20:00 98.5 93 20 148/84 100 Mechanical Ventilator 40 10/21/17 20:00 40 10/21/17 19:20 91 20 100 Mechanical Ventilator 40 10/21/17 19:11 91 20 99 Mechanical Ventilator 40 10/21/17 19:10 94 20 40 10/21/17 19:01 97 10/21/17 19:00 93 23 152/105 99 Mechanical Ventilator 40 10/21/17 18:00 94 21 151/95 100 Mechanical Ventilator 40 Intake and Output 10/22/17 10/23/17 19:00 07:00 Intake Total 750 ml Output Total 2360 ml Balance -1610 ml IV Total 750 ml Output Urine Total 2360 ml General Appearance: no acute distress HEENT: atraumatic Respiratory/Chest: decreased breath sounds Cardiovascular: normal rate Microbiology Date/Time Source Procedure Growth Status 10/19/17 22:55 Nasal Nares 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 Complete 10/19/17 22:55 Rectum VRE Culture - Final NO VANCOMYCIN RESISTANT ENTEROCOCCUS ... Complete Laboratory Tests 10/22/17 09:52: Arterial Blood pH 7.320L, Arterial Blood Partial Pressure CO2 74.5*H, Arterial Blood Partial Pressure O2 69.4L, Arterial Blood HCO3 37.5H, Arterial Blood Oxygen Saturation 92.7, Arterial Blood Base Excess 8.5, Wang Test Positive Current Medications Medications (Trade) Dose Ordered Sig/Pool Route PRN Reason Start Time Stop Time Status Last Admin Dose Admin Albuterol/ Ipratropium (Albuterol/ Ipratropium) 3 ml Q4HRT HHN 10/20/17 19:00 10/25/17 00:59 10/22/17 14:49 Ceftriaxone Sodium 1 gm/ Dextrose 55 ml @ 110 mls/hr Q24H IVPB 10/21/17 15:00 10/28/17 14:59 10/22/17 16:32 Dextrose (Dextrose 50%) STAT PRN IV Hypoglycemia 10/19/17 23:00 11/18/17 22:59 Dextrose/Sodium Chloride 1,000 ml @ 75 mls/hr [id number] IV 10/19/17 23:47 11/18/17 23:46 10/22/17 05:12 Hydromorphone HCl (Dilaudid) 0.5 mg Q4H PRN IVP For Pain 10/20/17 18:30 10/26/17 22:59 10/22/17 12:53 Lorazepam (Ativan 2mg/ml 1ml) 2 mg Q2H PRN IV For Anxiety 10/21/17 14:30 10/28/17 14:29 10/22/17 16:26 Methylprednisolone Sodium Succinate (Solu-MEDROL) 60 mg EVERY 12 HOURS IVP 10/20/17 09:00 11/19/17 08:59 10/22/17 08:22 Pantoprazole (Protonix) 40 mg DAILY IV 10/20/17 09:00 11/19/17 08:59 10/22/17 08:21 KEMAL HAZEL Oct 22, 2017 17:21
[2017-10-23] VITALS (24 sets, daily range): BP systolic 148–195; BP diastolic 82–119
[2017-10-23] MEDS: LORazepam Inj 2mg/ml 1ml IV PRN ×3 (01:28→07:13)
[2017-10-23] MEDS: Albuterol/Ipratropium 3ml neb HHN SCH ×6 (03:28→23:00)
[2017-10-23 05:12] LABS: BASOPHILS % (AUTO) 0.5 % (0.0-2.0); LYMPHOCYTES % (AUTO) 9.9 % (20.0-45.0); MEAN CORPUSCULAR HEMOGLOBIN 32.9 PG (27.0-31.0); MEAN CORPUSCULAR HGB CONC 34.2 G/DL (32.0-36.0); MEAN CORPUSCULAR VOLUME 96 FL (80-99); MEAN PLATELET VOLUME 6.1 FL (6.5-10.1); MONOCYTES % (AUTO) 5.9 % (1.0-10.0); NEUTROPHILS % (AUTO) 83.7 % (45.0-75.0); PLATELET COUNT 191 K/UL (150-450); RED CELL DISTRIBUTION WIDTH 11.6 % (11.6-14.8); WHITE BLOOD COUNT 8.5 K/UL (4.8-10.8)
[2017-10-23 05:24] LABS: ALANINE AMINOTRANSFERASE 29 U/L (12-78); ALBUMIN/GLOBULIN RATIO 0.7 (1.0-2.7); ANION GAP 2 mmol/L (5-15); ASPARTATE AMINO TRANSFERASE 23 U/L (15-37); CALCIUM 9.1 MG/DL (8.5-10.1); CARBON DIOXIDE 38 MMOL/L (21-32); CHLORIDE 99 MMOL/L (98-107); CREATININE 0.9 MG/DL (0.55-1.30); GLOMERULAR FILTRATION RATE > 60 mL/min (>60); POTASSIUM 4.5 MMOL/L (3.5-5.1); SODIUM 139 MMOL/L (136-145); TOTAL PROTEIN 7.5 G/DL (6.4-8.2)
[2017-10-23] MEDS: D5 1/2NS 1,000 ML IV SCH ×2 (07:52→21:01)
[2017-10-23] MEDS: Pantoprazole Inj IV SCH (08:01)
[2017-10-23] MEDS: Solu-MEDROL 125mg Inj IVP SCH ×2 (08:07→20:40)
[2017-10-23] MEDS: Hydromorphone 0.5mg/0.5ml inj IVP PRN ×2 (08:32→12:31)
[2017-10-23] MEDS ORDERED: cloNIDine 0.2mg Tab GT PRN (14:00)
--- NOTE | 2017-10-23 14:03 | General Progress Note ---
Assessment/Plan Problem List: (1) Respiratory failure with hypercapnia ICD Codes: J96.92 - Respiratory failure, unspecified with hypercapnia SNOMED: 295316107 (2) COPD exacerbation ICD Codes: J44.1 - Chronic obstructive pulmonary disease with (acute) exacerbation SNOMED: 959926268839877 (3) HTN (hypertension) ICD Codes: I10 - Essential (primary) hypertension SNOMED: 80482048 Assessment/Plan Bronchodilators IV Steroids Abxs Discussed with RN and Dr lester wean as tolerated IVF NG tube TTS 3 patch Subjective Allergies: Coded Allergies: PENICILLINS (Verified Allergy, Unknown, 10/19/17) Subjective agitated remains intubated Objective Last 24 Hour Vital Signs Date Time Temp Pulse Resp B/P (MAP) Pulse Ox O2 Delivery O2 Flow Rate FiO2 10/23/17 13:01 98.3 10/23/17 13:00 75 17 176/89 95 Mechanical Ventilator 30 10/23/17 12:35 81 19 30 10/23/17 12:00 83 10/23/17 12:00 30 10/23/17 12:00 98.3 88 20 187/94 97 Mechanical Ventilator 30 10/23/17 11:04 68 26 99 Mechanical Ventilator 30 10/23/17 11:00 87 23 172/82 94 Mechanical Ventilator 30 10/23/17 10:55 68 13 99 Mechanical Ventilator 30 10/23/17 10:45 75 20 30 10/23/17 10:00 69 17 181/94 93 Mechanical Ventilator 30 10/23/17 09:00 70 19 156/91 97 Mechanical Ventilator 30 10/23/17 08:58 84 19 30 10/23/17 08:00 30 10/23/17 08:00 98.2 96 20 184/88 97 Mechanical Ventilator 30 10/23/17 08:00 94 10/23/17 07:00 85 20 164/88 97 Mechanical Ventilator 30 10/23/17 07:00 87 25 99 Mechanical Ventilator 30 10/23/17 06:50 93 29 93 Mechanical Ventilator 30 10/23/17 06:50 94 29 30 10/23/17 06:00 100 20 173/99 94 Mechanical Ventilator 30 10/23/17 05:01 93 25 30 10/23/17 05:00 30 10/23/17 05:00 92 20 183/96 94 Mechanical Ventilator 30 10/23/17 04:00 97.9 90 20 178/87 98 Mechanical Ventilator 50 10/23/17 04:00 50 10/23/17 04:00 80 10/23/17 03:37 85 13 99 Mechanical Ventilator 30 10/23/17 03:27 82 16 99 Mechanical Ventilator 50 10/23/17 03:27 82 17 50 10/23/17 03:00 80 16 172/97 98 Mechanical Ventilator 50 10/23/17 02:00 80 14 149/83 97 Mechanical Ventilator 50 10/23/17 01:05 78 15 50 10/23/17 01:00 85 17 181/96 97 Mechanical Ventilator 50 10/23/17 00:00 94 10/23/17 00:00 50 10/23/17 00:00 98.9 77 17 148/85 98 Mechanical Ventilator 50 10/22/17 23:48 77 13 99 Mechanical Ventilator 30 10/22/17 23:38 81 26 94 Mechanical Ventilator 50 10/22/17 23:37 80 16 50 10/22/17 23:00 83 15 167/87 91 Mechanical Ventilator 50 10/22/17 23:00 50 10/22/17 22:00 85 17 182/95 92 Mechanical Ventilator 30 10/22/17 21:00 91 21 170/92 92 Mechanical Ventilator 30 10/22/17 20:42 82 16 30 10/22/17 20:03 79 13 99 Mechanical Ventilator 30 10/22/17 20:01 30 10/22/17 20:00 30 10/22/17 20:00 98.7 82 20 166/89 95 Mechanical Ventilator 30 10/22/17 19:47 82 13 98 Mechanical Ventilator 30 10/22/17 19:37 83 26 97 Mechanical Ventilator 30 10/22/17 19:37 83 12 30 10/22/17 19:00 81 15 156/84 99 Mechanical Ventilator 40 10/22/17 18:55 184/89 10/22/17 18:00 93 23 184/89 93 Mechanical Ventilator 40 10/22/17 17:13 92 24 30 10/22/17 17:00 93 24 187/89 93 Mechanical Ventilator 40 10/22/17 16:00 99.0 96 24 195/102 93 Mechanical Ventilator 40 10/22/17 16:00 94 10/22/17 16:00 40 10/22/17 15:00 83 13 98 Mechanical Ventilator 30 10/22/17 15:00 92 23 169/67 95 Mechanical Ventilator 40 10/22/17 14:49 88 21 30 10/22/17 14:49 88 94 Mechanical Ventilator Intake and Output 10/23/17 10/24/17 19:00 07:00 Intake Total 300 ml Output Total 1370 ml Balance -1070 ml IV Total 300 ml Output Urine Total 1370 ml Laboratory Tests 10/23/17 03:50: White Blood Count 8.5, Red Blood Count 4.10L, Hemoglobin 13.5L, Hematocrit 39.4L , Mean Corpuscular Volume 96, Mean Corpuscular Hemoglobin 32.9H, Mean Corpuscular Hemoglobin Concent 34.2, Red Cell Distribution Width 11.6, Platelet Count 191, Mean Platelet Volume 6.1L, Neutrophils (%) (Auto) 83.7H, Lymphocytes (%) (Auto) 9.9L, Monocytes (%) (Auto) 5.9, Eosinophils (%) (Auto) 0.0, Basophils (%) (Auto) 0.5, Sodium Level 139, Potassium Level 4.5, Chloride Level 99, Carbon Dioxide Level 38H, Anion Gap 2L, Blood Urea Nitrogen 18, Creatinine 0.9, Estimat Glomerular Filtration Rate > 60, Glucose Level 307H, Calcium Level 9.1, Total Bilirubin 0.4, Aspartate Amino Transf (AST/SGOT) 23, Alanine Aminotransferase (ALT/SGPT) 29, Alkaline Phosphatase 88, Pro-B-Type Natriuretic Peptide 430H, Total Protein 7.5, Albumin 3.1L, Globulin 4.4, Albumin/Globulin Ratio 0.7L Height (Feet): 6 Height (Inches): 2.00 Weight (Pounds): 203 Cardiovascular: normal rate Respiratory/Chest: rhonchi - bilaterally Edema: no edema noted JAVIER Guevara Oct 23, 2017 14:03
--- NOTE | 2017-10-23 14:18 | Pulmonology Progress Note ---
Assessment/Plan Assessment/Plan 1. Hypercapnic respiratory failure, intubated. 2. Chronic obstructive pulmonary disease. 3. Hypertension. 4. Agitation. 5. History of stroke. spontaneous TV excellent >500 cc, RR 24 extubate disc w RN, Dr Collins Subjective ROS Limited/Unobtainable: Yes Allergies: Coded Allergies: PENICILLINS (Verified Allergy, Unknown, 10/19/17) Objective Last 24 Hour Vital Signs Date Time Temp Pulse Resp B/P (MAP) Pulse Ox O2 Delivery O2 Flow Rate FiO2 10/23/17 14:00 74 17 180/94 95 Mechanical Ventilator 30 10/23/17 13:01 98.3 10/23/17 13:00 75 17 176/89 95 Mechanical Ventilator 30 10/23/17 12:35 81 19 30 10/23/17 12:00 83 10/23/17 12:00 30 10/23/17 12:00 98.3 88 20 187/94 97 Mechanical Ventilator 30 10/23/17 11:04 68 26 99 Mechanical Ventilator 30 10/23/17 11:00 87 23 172/82 94 Mechanical Ventilator 30 10/23/17 10:55 68 13 99 Mechanical Ventilator 30 10/23/17 10:45 75 20 30 10/23/17 10:00 69 17 181/94 93 Mechanical Ventilator 30 10/23/17 09:00 70 19 156/91 97 Mechanical Ventilator 30 10/23/17 08:58 84 19 30 10/23/17 08:00 30 10/23/17 08:00 98.2 96 20 184/88 97 Mechanical Ventilator 30 10/23/17 08:00 94 10/23/17 07:00 85 20 164/88 97 Mechanical Ventilator 30 10/23/17 07:00 87 25 99 Mechanical Ventilator 30 10/23/17 06:50 93 29 93 Mechanical Ventilator 30 10/23/17 06:50 94 29 30 10/23/17 06:00 100 20 173/99 94 Mechanical Ventilator 30 10/23/17 05:01 93 25 30 10/23/17 05:00 30 10/23/17 05:00 92 20 183/96 94 Mechanical Ventilator 30 10/23/17 04:00 97.9 90 20 178/87 98 Mechanical Ventilator 50 10/23/17 04:00 50 10/23/17 04:00 80 10/23/17 03:37 85 13 99 Mechanical Ventilator 30 10/23/17 03:27 82 16 99 Mechanical Ventilator 50 10/23/17 03:27 82 17 50 10/23/17 03:00 80 16 172/97 98 Mechanical Ventilator 50 10/23/17 02:00 80 14 149/83 97 Mechanical Ventilator 50 10/23/17 01:05 78 15 50 10/23/17 01:00 85 17 181/96 97 Mechanical Ventilator 50 10/23/17 00:00 94 10/23/17 00:00 50 10/23/17 00:00 98.9 77 17 148/85 98 Mechanical Ventilator 50 10/22/17 23:48 77 13 99 Mechanical Ventilator 30 10/22/17 23:38 81 26 94 Mechanical Ventilator 50 10/22/17 23:37 80 16 50 10/22/17 23:00 83 15 167/87 91 Mechanical Ventilator 50 10/22/17 23:00 50 10/22/17 22:00 85 17 182/95 92 Mechanical Ventilator 30 10/22/17 21:00 91 21 170/92 92 Mechanical Ventilator 30 10/22/17 20:42 82 16 30 10/22/17 20:03 79 13 99 Mechanical Ventilator 30 10/22/17 20:01 30 10/22/17 20:00 30 10/22/17 20:00 98.7 82 20 166/89 95 Mechanical Ventilator 30 10/22/17 19:47 82 13 98 Mechanical Ventilator 30 10/22/17 19:37 83 26 97 Mechanical Ventilator 30 10/22/17 19:37 83 12 30 10/22/17 19:00 81 15 156/84 99 Mechanical Ventilator 40 10/22/17 18:55 184/89 10/22/17 18:00 93 23 184/89 93 Mechanical Ventilator 40 10/22/17 17:13 92 24 30 10/22/17 17:00 93 24 187/89 93 Mechanical Ventilator 40 10/22/17 16:00 99.0 96 24 195/102 93 Mechanical Ventilator 40 10/22/17 16:00 94 10/22/17 16:00 40 10/22/17 15:00 83 13 98 Mechanical Ventilator 30 10/22/17 15:00 92 23 169/67 95 Mechanical Ventilator 40 10/22/17 14:49 88 21 30 10/22/17 14:49 88 94 Mechanical Ventilator Intake and Output 10/23/17 10/24/17 19:00 07:00 Intake Total 300 ml Output Total 1520 ml Balance -1220 ml IV Total 300 ml Output Urine Total 1520 ml General Appearance: no acute distress Respiratory/Chest: lungs clear, decreased breath sounds Cardiovascular: normal rate Laboratory Tests 10/23/17 03:50: White Blood Count 8.5, Red Blood Count 4.10L, Hemoglobin 13.5L, Hematocrit 39.4L , Mean Corpuscular Volume 96, Mean Corpuscular Hemoglobin 32.9H, Mean Corpuscular Hemoglobin Concent 34.2, Red Cell Distribution Width 11.6, Platelet Count 191, Mean Platelet Volume 6.1L, Neutrophils (%) (Auto) 83.7H, Lymphocytes (%) (Auto) 9.9L, Monocytes (%) (Auto) 5.9, Eosinophils (%) (Auto) 0.0, Basophils (%) (Auto) 0.5, Sodium Level 139, Potassium Level 4.5, Chloride Level 99, Carbon Dioxide Level 38H, Anion Gap 2L, Blood Urea Nitrogen 18, Creatinine 0.9, Estimat Glomerular Filtration Rate > 60, Glucose Level 307H, Calcium Level 9.1, Total Bilirubin 0.4, Aspartate Amino Transf (AST/SGOT) 23, Alanine Aminotransferase (ALT/SGPT) 29, Alkaline Phosphatase 88, Pro-B-Type Natriuretic Peptide 430H, Total Protein 7.5, Albumin 3.1L, Globulin 4.4, Albumin/Globulin Ratio 0.7L Current Medications Medications (Trade) Dose Ordered Sig/Pool Route PRN Reason Start Time Stop Time Status Last Admin Dose Admin Albuterol/ Ipratropium (Albuterol/ Ipratropium) 3 ml Q4HRT HHN 10/20/17 19:00 10/25/17 00:59 10/23/17 10:54 Ceftriaxone Sodium 1 gm/ Dextrose 55 ml @ 110 mls/hr Q24H IVPB 10/21/17 15:00 10/28/17 14:59 10/22/17 16:32 Clonidine HCl (Catapres TTS-3) 1 patch QWEEK TDERMAL 10/23/17 15:00 11/22/17 14:59 Clonidine HCl (Catapres) 0.2 mg Q6H PRN GT SBP greater than 170 10/23/17 14:00 11/22/17 13:59 Dextrose (Dextrose 50%) STAT PRN IV Hypoglycemia 10/19/17 23:00 11/18/17 22:59 Dextrose/Sodium Chloride 1,000 ml @ 75 mls/hr [id number] IV 10/19/17 23:47 11/18/17 23:46 10/23/17 07:52 Hydromorphone HCl (Dilaudid) 0.5 mg Q4H PRN IVP For Pain 10/20/17 18:30 10/26/17 22:59 10/23/17 12:31 Lorazepam (Ativan 2mg/ml 1ml) 2 mg Q2H PRN IV For Anxiety 10/21/17 14:30 10/28/17 14:29 10/23/17 07:13 Methylprednisolone Sodium Succinate (Solu-MEDROL) 60 mg EVERY 12 HOURS IVP 10/20/17 09:00 11/19/17 08:59 10/23/17 08:07 Pantoprazole (Protonix) 40 mg DAILY IV 10/20/17 09:00 11/19/17 08:59 10/23/17 08:01 KEMAL HAZEL Oct 23, 2017 14:18
[2017-10-23] MEDS ORDERED: 1/2 NS 1000ml IV ONE (14:53)
[2017-10-23] MEDS ORDERED: D5 1/2NS 1000ml IV ONE (14:53)
[2017-10-23] MEDS ORDERED: Tubing IV Secondary IV ONE (14:53)
[2017-10-23] MEDS: cefTRIAXone 1 GM in D5W 55 ML IVPB SCH (15:21)
[2017-10-23 15:39] LABS: ABG ALLEN TEST POSITIVE; ABG BASE EXCESS 12.5; ABG PCO2 59.2 mmHg (35.0-45.0)
[2017-10-24] VITALS (15 sets, daily range): BP systolic 150–183; BP diastolic 69–116
[2017-10-24] MEDS: Albuterol/Ipratropium 3ml neb HHN SCH ×5 (03:00→20:05)
[2017-10-24] MEDS: Solu-MEDROL 125mg Inj IVP SCH ×2 (08:35→20:44)
[2017-10-24] MEDS: Pantoprazole Inj IV SCH (08:35)
[2017-10-24] MEDS: D5 1/2NS 1,000 ML IV SCH ×2 (10:07→14:30)
[2017-10-24] MEDS ORDERED: D5 1/2NS 1000ml IV ONE (10:23)
--- NOTE | 2017-10-24 13:06 | Pulmonology Progress Note ---
Assessment/Plan Assessment/Plan 1. Hypercapnic respiratory failure, extubated. 2. Chronic obstructive pulmonary disease. 3. Hypertension. 4. Agitation. 5. History of stroke. extubated yesterday without difficulty disc w RN start diet RASHIDA Subjective Respiratory: Reports: shortness of breath Allergies: Coded Allergies: PENICILLINS (Verified Allergy, Unknown, 10/19/17) Objective Last 24 Hour Vital Signs Date Time Temp Pulse Resp B/P (MAP) Pulse Ox O2 Delivery O2 Flow Rate FiO2 10/24/17 12:00 98.2 66 18 177/69 93 Room Air 10/24/17 11:59 Room Air 21 10/24/17 11:00 65 16 183/80 94 Room Air 10/24/17 10:00 65 22 182/91 91 Room Air 10/24/17 09:00 71 23 160/106 90 Room Air 10/24/17 08:22 61 16 100 Room Air 21 10/24/17 08:13 67 13 95 Room Air 21 10/24/17 08:13 95 Room Air 21 10/24/17 08:13 Room Air 21 10/24/17 08:00 97.7 72 19 164/116 96 Nasal Cannula 4.0 10/24/17 08:00 59 10/24/17 07:00 75 17 162/84 100 Nasal Cannula 4.0 10/24/17 06:00 75 17 179/87 100 Nasal Cannula 4.0 10/24/17 05:00 69 17 157/82 100 Nasal Cannula 4.0 10/24/17 04:00 97.0 72 18 167/97 96 Nasal Cannula 4.0 10/24/17 04:00 77 10/24/17 03:22 Nasal Cannula 3.0 32 10/24/17 03:21 Nasal Cannula 3.0 32 10/24/17 03:00 78 18 175/98 96 Nasal Cannula 4.0 10/24/17 02:00 72 15 159/79 96 Nasal Cannula 4.0 10/24/17 01:00 76 19 160/97 96 Nasal Cannula 4.0 10/24/17 00:00 98.0 77 19 174/103 96 Nasal Cannula 4.0 10/23/17 23:22 Nasal Cannula 3.0 32 10/23/17 23:21 Nasal Cannula 3.0 32 10/23/17 23:00 76 19 195/97 96 Nasal Cannula 4.0 10/23/17 22:00 77 19 162/89 96 Nasal Cannula 4.0 10/23/17 21:00 75 19 160/89 96 Room Air 4.0 10/23/17 20:00 80 10/23/17 20:00 98.5 75 20 165/91 97 Nasal Cannula 4.0 10/23/17 19:30 70 17 100 Nasal Cannula 3.0 32 10/23/17 19:24 97 Nasal Cannula 3.0 32 10/23/17 19:23 Nasal Cannula 3.0 32 10/23/17 19:21 80 20 97 Simple Mask 8.0 30 10/23/17 19:00 74 17 162/107 97 Venturi Mask 8.0 30 10/23/17 18:00 79 18 181/87 95 Venturi Mask 8.0 30 10/23/17 17:00 69 18 168/105 95 Venturi Mask 8.0 30 10/23/17 16:00 77 10/23/17 16:00 98.2 69 20 168/119 97 Venturi Mask 8.0 30 10/23/17 15:22 191/105 10/23/17 15:00 74 18 191/105 95 Simple Mask 8.0 30 10/23/17 14:44 76 16 99 Nasal Cannula 2.0 28 10/23/17 14:34 77 20 95 Nasal Cannula 2.0 28 10/23/17 14:30 81 15 10/23/17 14:00 30 10/23/17 14:00 74 17 180/94 95 Mechanical Ventilator 30 Intake and Output 10/24/17 10/25/17 19:00 07:00 Intake Total 250 ml Output Total 920 ml Balance -670 ml IV Total 250 ml Output Urine Total 920 ml General Appearance: no acute distress HEENT: atraumatic Respiratory/Chest: expiratory wheezing Cardiovascular: normal rate Laboratory Tests 10/23/17 15:32: Arterial Blood pH 7.440, Arterial Blood Partial Pressure CO2 59.2*H, Arterial Blood Partial Pressure O2 57.8L, Arterial Blood HCO3 39.4H, Arterial Blood Oxygen Saturation 90.8L, Arterial Blood Base Excess 12.5, Wang Test Positive Current Medications Medications (Trade) Dose Ordered Sig/Pool Route PRN Reason Start Time Stop Time Status Last Admin Dose Admin Albuterol/ Ipratropium (Albuterol/ Ipratropium) 3 ml Q4HRT HHN 10/24/17 15:00 10/25/17 00:59 UNV Ceftriaxone Sodium 1 gm/ Dextrose 55 ml @ 110 mls/hr Q24H IVPB 10/24/17 15:00 10/28/17 14:59 UNV Clonidine HCl (Catapres TTS-3) 1 patch QWEEK TDERMAL 10/30/17 15:00 11/22/17 14:59 UNV Clonidine HCl (Catapres) 0.2 mg Q6H PRN GT SBP greater than 170 10/24/17 14:00 11/22/17 13:59 UNV Dextrose (Dextrose 50%) STAT PRN IV Hypoglycemia 10/24/17 23:00 11/18/17 22:59 UNV Dextrose/Sodium Chloride 1,000 ml @ 75 mls/hr [id number] IV 10/24/17 12:45 11/18/17 23:46 UNV Methylprednisolone Sodium Succinate (Solu-MEDROL) 60 mg EVERY 12 HOURS IVP 10/24/17 21:00 11/19/17 08:59 UNV Pantoprazole (Protonix) 40 mg DAILY IV 10/25/17 09:00 11/19/17 08:59 UNV KEMAL HAZEL Oct 24, 2017 13:06
--- NOTE | 2017-10-24 13:14 | General Progress Note ---
Assessment/Plan Problem List: (1) Respiratory failure with hypercapnia ICD Codes: J96.92 - Respiratory failure, unspecified with hypercapnia SNOMED: 470938591 (2) COPD exacerbation ICD Codes: J44.1 - Chronic obstructive pulmonary disease with (acute) exacerbation SNOMED: 648939165762356 (3) HTN (hypertension) ICD Codes: I10 - Essential (primary) hypertension SNOMED: 21518048 Assessment/Plan Bronchodilators IV Steroids Abxs Discussed with RN wean as tolerated TTS 3 clonidine patch may leave AMA Subjective Allergies: Coded Allergies: PENICILLINS (Verified Allergy, Unknown, 10/19/17) Subjective extubated wants to leave Objective Last 24 Hour Vital Signs Date Time Temp Pulse Resp B/P (MAP) Pulse Ox O2 Delivery O2 Flow Rate FiO2 10/24/17 12:00 98.2 66 18 177/69 93 Room Air 10/24/17 11:59 Room Air 21 10/24/17 11:00 65 16 183/80 94 Room Air 10/24/17 10:00 65 22 182/91 91 Room Air 10/24/17 09:00 71 23 160/106 90 Room Air 10/24/17 08:22 61 16 100 Room Air 21 10/24/17 08:13 67 13 95 Room Air 21 10/24/17 08:13 95 Room Air 21 10/24/17 08:13 Room Air 21 10/24/17 08:00 97.7 72 19 164/116 96 Nasal Cannula 4.0 10/24/17 08:00 59 10/24/17 07:00 75 17 162/84 100 Nasal Cannula 4.0 10/24/17 06:00 75 17 179/87 100 Nasal Cannula 4.0 10/24/17 05:00 69 17 157/82 100 Nasal Cannula 4.0 10/24/17 04:00 97.0 72 18 167/97 96 Nasal Cannula 4.0 10/24/17 04:00 77 10/24/17 03:22 Nasal Cannula 3.0 32 10/24/17 03:21 Nasal Cannula 3.0 32 10/24/17 03:00 78 18 175/98 96 Nasal Cannula 4.0 10/24/17 02:00 72 15 159/79 96 Nasal Cannula 4.0 10/24/17 01:00 76 19 160/97 96 Nasal Cannula 4.0 10/24/17 00:00 98.0 77 19 174/103 96 Nasal Cannula 4.0 10/23/17 23:22 Nasal Cannula 3.0 32 10/23/17 23:21 Nasal Cannula 3.0 32 10/23/17 23:00 76 19 195/97 96 Nasal Cannula 4.0 10/23/17 22:00 77 19 162/89 96 Nasal Cannula 4.0 10/23/17 21:00 75 19 160/89 96 Room Air 4.0 10/23/17 20:00 80 10/23/17 20:00 98.5 75 20 165/91 97 Nasal Cannula 4.0 10/23/17 19:30 70 17 100 Nasal Cannula 3.0 32 10/23/17 19:24 97 Nasal Cannula 3.0 32 10/23/17 19:23 Nasal Cannula 3.0 32 10/23/17 19:21 80 20 97 Simple Mask 8.0 30 10/23/17 19:00 74 17 162/107 97 Venturi Mask 8.0 30 10/23/17 18:00 79 18 181/87 95 Venturi Mask 8.0 30 10/23/17 17:00 69 18 168/105 95 Venturi Mask 8.0 30 10/23/17 16:00 77 10/23/17 16:00 98.2 69 20 168/119 97 Venturi Mask 8.0 30 10/23/17 15:22 191/105 10/23/17 15:00 74 18 191/105 95 Simple Mask 8.0 30 10/23/17 14:44 76 16 99 Nasal Cannula 2.0 28 10/23/17 14:34 77 20 95 Nasal Cannula 2.0 28 10/23/17 14:30 81 15 10/23/17 14:00 30 10/23/17 14:00 74 17 180/94 95 Mechanical Ventilator 30 Intake and Output 10/24/17 10/25/17 19:00 07:00 Intake Total 250 ml Output Total 920 ml Balance -670 ml IV Total 250 ml Output Urine Total 920 ml Laboratory Tests 10/23/17 15:32: Arterial Blood pH 7.440, Arterial Blood Partial Pressure CO2 59.2*H, Arterial Blood Partial Pressure O2 57.8L, Arterial Blood HCO3 39.4H, Arterial Blood Oxygen Saturation 90.8L, Arterial Blood Base Excess 12.5, Wang Test Positive Height (Feet): 6 Height (Inches): 2.00 Weight (Pounds): 201 Cardiovascular: normal rate Respiratory/Chest: lungs clear Edema: no edema noted JAVIER Guevara Oct 24, 2017 13:14
--- NOTE | 2017-10-24 13:24 | Wound Care Consultation ---
Wound Assessment Wound Assessment : Wound Number: 1 Wound Present on Admission: Yes New Wound: No Status Change of Wound: No Wound Location Body Site: sacral Wound Type: pressure ulcer Rina Test: Does not Rina Pressure Ulcer Stage: II Wound Length: 1.0 Wound Width: 1.0 Wound Depth: 0.2 Percent of Wound [place]/Red: 100 Wound Drainage Description: Serosanguineous Wound Drainage Amount: Scant Wound Drainage Odor: None/Absent Tissue Surrounding Wound: Macerated - with scattered self inflicted scratches to site. Wound General Appearance: Reddened Wound Comment #1 Sacral pressure ulcer stage 2 with scattered self inflicted scratches Recommended -Local wound care as ordered. -Turn and reposition. -Keep clean and dry. -Optimize nutrition. -Offload heels and feet. -Apply low air loss mattress SPR. -Assess and notify MD for any changes of condition. LOAN WEINER Oct 24, 2017 13:24
[2017-10-24] MEDS ORDERED: cloNIDine 0.2mg Tab GT PRN (14:00)
[2017-10-24] MEDS ORDERED: cefTRIAXone 1 GM in D5W 55 ML IVPB SCH (15:00)
[2017-10-25] VITALS: BP 145/90
[2017-10-25] MEDS: Albuterol/Ipratropium 3ml neb HHN SCH (00:03)
[2017-10-25 04:00] VITALS: BP 150/92
[2017-10-25] MEDS ORDERED: Albuterol/Ipratropium 3ml neb HHN STA (04:10)
[2017-10-25] MEDS: D5 1/2NS 1,000 ML IV SCH (04:41)
[2017-10-25] MEDS ORDERED: Albuterol/Ipratropium 3ml neb HHN PRN (07:45)
[2017-10-25 08:00] VITALS: BP 144/98
[2017-10-25] MEDS: Solu-MEDROL 125mg Inj IVP SCH (08:28)
[2017-10-25] MEDS ORDERED: Pantoprazole Inj IV SCH (09:00)
--- NOTE | 2017-10-25 10:06 | Consultation ---
Consult Note Assessment/Plan Dc dictated # [id number] JAVIER OBRIEN Oct 25, 2017 10:06
[2017-10-25 12:00] VITALS: BP 153/87
[2017-10-25] MEDS ORDERED: D5 1/2NS 1000ml IV ONE (12:59)
--- NOTE | 2017-10-25 22:45 | Discharge Summary ---
DATE OF ADMISSION: 10/19/2017 DATE OF DISCHARGE: 10/25/2017 CHIEF COMPLAINT: Shortness of breath. HISTORY OF PRESENT ILLNESS: This is a 67-year-old white male with a history of COPD, former smoker, who was admitted with severe shortness of breath. He required intubation because he was hypercapnic and in severe respiratory distress. HOSPITAL COURSE: The patient was admitted with diagnosis of COPD exacerbation. He was maintained on ventilator. The patient was followed by Dr. Jude Landeros in Pulmonary consultation. He was maintained on bronchodilators, IV steroids, and ventilatory support. Eventually, he could be extubated and transferred to step-down unit. He continued to do well and he was started on a diet and eventually discharged home in stable condition. Of note, the patient was also given antibiotics for possible acute bronchitis. DISCHARGE DIAGNOSES: 1. Chronic obstructive pulmonary disease exacerbation. 2. Acute bronchitis. The following MIPS ([employer]-based Incentive Payment System) measures were done. 3. Measure #130: Obtain updated review of the patient's current medications including [id number], herbal, and nutritional supplements. 4. Measure #318: Screen for future fall risk at least once in 2017. This patient is at low risk at this time. 5. Measure #374: Send report to referring provider. This will be done through EMR. The following improvement activities were done on this patient. 6. Implementation of use of specialists' reports back to referring clinician or group to close referral loop done through EMR. 7. Provide 11/06 access to eligible clinicians or groups to have real time access to the patient's medical record done through EMR. Baltazar Collins M.D. DR: Evita JOB#: [id number] CC:
--- NOTE | 2017-10-26 09:20 | Diagnostic Imaging Report ---
Indication: Shortness of breath Technique: XRAY CHEST 1 V Comparison: 10/19/17 Findings: Endotracheal tube unchanged in position. Heart size and mediastinal contours are stable. No acute osseous abnormality is seen. There is no pleural effusion. No pneumothorax. No definite focal airspace consolidation seen. Impression: No significant interval change in appearance of the heart and lungs compared to the prior exam.
== END 2017-10-25 13:00 | disposition home health service (06) | DRG 208 ==
LOC: EDBD 19:11 → EMR 19:50 → ICU 19:54 → UNDOADMIN 19:54 → 2W 19:54 → EDBEDREQ 20:24 → EDBEDREQSVC 21:43 → EDBEDREQ 21:44 → 2W 10-24 12:41
PROC: 5A1945Z Respiratory Ventilation, 24-96 Consecutive Hours (ICD-10-PCS; principal; 2017-10-19)
PROC: 0BH17EZ Insertion of Endotracheal Airway into Trachea, Via Natural or Artificial Opening (ICD-10-PCS; principal; 2017-10-19)
DX: J96.01 Acute respiratory failure with hypoxia (principal); J44.0 Chronic obstructive pulmonary disease with (acute) lower respiratory infection; J44.1 Chronic obstructive pulmonary disease with (acute) exacerbation; J96.02 Acute respiratory failure with hypercapnia; I10 Essential (primary) hypertension; R45.1 Restlessness and agitation; Z86.73 Personal history of transient ischemic attack (TIA), and cerebral infarction without residual deficits; J20.9 Acute bronchitis, unspecified
CPT/HCPCS: 36415; 36600; 71010; 80048; 80053; 80069; 80076; 81003; 82803; 82962; 83735; 83880; 84478; 84484; 85007; 85025; 85610; 85730; 87081; 93005; 94002; 94003; 94640; 94664; 94760; 99291; J7620